=== PATIENT | male | born 2000 | race Caucasian/White ===

== ENCOUNTER 2023-07-23 12:02 | Inpatient (IN) | payer OTHER ==
[2023-07-23 12:27] VITALS: BMI 18.4
[2023-07-23] MEDS ORDERED: guaiFENesin 600 MG TABLET.ER (FP) PO PRN (13:22)
[2023-07-23] MEDS ORDERED: NALOXONE HCL (KLOXXADO) 8 MG SPRAY NS PRN (13:22)
[2023-07-23] MEDS ORDERED: DICYCLOMINE HCL 10 MG CAPSULE PO PRN (13:22)
[2023-07-23] MEDS ORDERED: ACETAMINOPHEN 325 MG TABLET (FP) PO PRN (13:22)
[2023-07-23] MEDS ORDERED: LOPERAMIDE HCL 2 MG CAPSULE PO PRN (13:22)
[2023-07-23] MEDS ORDERED: MAG HYDROX/AL HYDROX/SIMETH 30 ML UNIT-DOSE CUP PO PRN (13:22)
[2023-07-23] MEDS ORDERED: BISMUTH SUBSALICYLATE 262 MG/15 ML BTL PO PRN (13:22)
[2023-07-23] MEDS ORDERED: IBUPROFEN 400 MG TABLET (FP) PO PRN (13:22)
[2023-07-23] MEDS ORDERED: ONDANSETRON *ODT* 4 MG TABLET SL PRN (13:22)
[2023-07-23] MEDS ORDERED: BENZOCAINE/MENTHOL (CHLORASEPTIC ) LOZENGE MM PRN (13:22)
[2023-07-23] MEDS ORDERED: POLYETHYLENE GLYCOL (HEALTHYLAX) 3350 17 GM PACKET PO PRN (13:22)
[2023-07-23] MEDS ORDERED: MAGNESIUM HYDROX 2400MG/30ML ORAL SUSPENSION 30 ML CUP PO PRN (13:22)
[2023-07-23] MEDS ORDERED: NALOXONE HCL 0.4 MG/ML VIAL IM PRN (13:22)
[2023-07-23] MEDS ORDERED: BENZONATATE 200 MG CAPSULE PO PRN (13:22)
[2023-07-23] MEDS ORDERED: cloNIDine HCL 0.1 MG TABLET PO PRN (14:29)
[2023-07-23] MEDS ORDERED: methaDONE HCL 10 MG TABLET (FOR DETOX USE ONLY) PO ONE (14:29)
[2023-07-23] MEDS: hydrOXYzine PAMOATE 25 MG CAPSULE (FP) PO PRN (22:38)
[2023-07-23] MEDS: MELATONIN 5 MG TABLETS PO SCH (22:38)
[2023-07-23] MEDS: THIAMINE HCL 100 MG TABLET (FP) PO SCH (22:39)
[2023-07-24] MEDS: hydrOXYzine PAMOATE 25 MG CAPSULE (FP) PO PRN ×2 (07:23→22:29)
[2023-07-24] MEDS: METHOCARBAMOL 500 MG TABLET PO PRN (09:33)
[2023-07-24] MEDS: IBUPROFEN 600 MG TABLET (FP) PO PRN (09:33)
[2023-07-24] MEDS: PRENATAL VITAMINS W/ FOLIC ACID TABLET (FP) PO SCH (09:37)
[2023-07-24] MEDS: NICOTINE 21 MG/24 HOURS TOPICAL PATCH TD SCH (09:37)
[2023-07-24 10:46] LABS: HEMATOCRIT 45.4 % (35.4-49); HEMOGLOBIN 15.4 GM/dL (11.7-16.9); MCH 30.8 pg (25.7-33.7); MCHC 33.9 g/dl (32.0-35.9); MEAN CELL VOLUME 90.6 fl (80-96); MEAN PLT VOLUME 9.3 fl (7.5-11.1); PLATELET COUNT 228 10^3/uL (134-434); RBC 5.01 M/mm3 (4.00-5.60); RDW 12.8 % (11.9-15.9); WHITE BLOOD COUNT 7.5 K/mm3 (4.0-10.0)
[2023-07-24 11:40] LABS: CHLORIDE 104 mmol/L (98-107); POTASSIUM 4.1 mmol/L (3.5-5.1); SODIUM 139 mmol/L (136-145)
[2023-07-24 11:43] LABS: ALBUMIN 3.7 g/dl (3.4-5.0); GLUCOSE,RANDOM 83 mg/dL (74-106)
[2023-07-24 11:44] LABS: BLOOD UREA NITROGEN 17.1 mg/dL (7-18)
[2023-07-24 11:45] LABS: CALCIUM 9.5 mg/dL (8.5-10.1)
[2023-07-24 11:46] LABS: ANION GAP 6 mmol/L (4-13); CO2 29 mmol/L (21-32); SGPT/ALT 24 U/L (13-61)
[2023-07-24 11:47] LABS: BILIRUBIN,TOTAL 0.6 mg/dL (0.2-1); CREATININE 0.8 mg/dL (0.55-1.3); SGOT/AST 11 U/L (15-37)
[2023-07-24 11:48] LABS: TOT PROT 6.6 g/dl (6.4-8.2)
[2023-07-24 11:49] LABS: ALK PHOS 49 U/L (45-117)
[2023-07-24 12:11] LABS: HIV INTERPRETATION NEGATIVE (NEGATIVE)
[2023-07-24] MEDS: diazePAM 5 MG TABLET PO PRN (17:51)
[2023-07-24] MEDS: MELATONIN 5 MG TABLETS PO SCH (22:29)
[2023-07-24] MEDS: THIAMINE HCL 100 MG TABLET (FP) PO SCH (22:29)
[2023-07-25] MEDS: diazePAM 5 MG TABLET PO PRN ×2 (09:55→15:05)
[2023-07-25] MEDS: METHOCARBAMOL 500 MG TABLET PO PRN ×2 (09:55→22:25)
[2023-07-25] MEDS: PRENATAL VITAMINS W/ FOLIC ACID TABLET (FP) PO SCH (09:58)
[2023-07-25] MEDS: NICOTINE 21 MG/24 HOURS TOPICAL PATCH TD SCH (09:59)
[2023-07-25] MEDS ORDERED: methaDONE HCL 10 MG TABLET (FOR DETOX USE ONLY) PO ONE (10:00)
[2023-07-25] MEDS: hydrOXYzine PAMOATE 25 MG CAPSULE (FP) PO PRN ×2 (15:08→22:25)
[2023-07-25] MEDS: MELATONIN 5 MG TABLETS PO SCH (22:24)
[2023-07-25] MEDS: THIAMINE HCL 100 MG TABLET (FP) PO SCH (22:24)
[2023-07-25] MEDS: IBUPROFEN 600 MG TABLET (FP) PO PRN (22:30)
[2023-07-25] MEDS: NICOTINE POLACRILEX 4 MG GUM BUC PRN (22:32)
[2023-07-26] MEDS: METHOCARBAMOL 500 MG TABLET PO PRN ×2 (10:18→18:03)
[2023-07-26] MEDS: NICOTINE 21 MG/24 HOURS TOPICAL PATCH TD SCH (10:19)
[2023-07-26] MEDS: PRENATAL VITAMINS W/ FOLIC ACID TABLET (FP) PO SCH (10:20)
[2023-07-26] MEDS: diazePAM 5 MG TABLET PO PRN ×2 (14:11→22:17)
[2023-07-26] MEDS: hydrOXYzine PAMOATE 25 MG CAPSULE (FP) PO PRN (18:03)
[2023-07-26] MEDS: MELATONIN 5 MG TABLETS PO SCH (22:17)
[2023-07-26] MEDS: THIAMINE HCL 100 MG TABLET (FP) PO SCH (22:17)
[2023-07-26] MEDS: IBUPROFEN 600 MG TABLET (FP) PO PRN (22:20)
[2023-07-27] MEDS ORDERED: methaDONE HCL 10 MG TABLET (FOR DETOX USE ONLY) PO ONE (10:00)
[2023-07-27] MEDS: PRENATAL VITAMINS W/ FOLIC ACID TABLET (FP) PO SCH (10:31)
[2023-07-27] MEDS: NICOTINE 21 MG/24 HOURS TOPICAL PATCH TD SCH (10:32)
[2023-07-27] MEDS: METHOCARBAMOL 500 MG TABLET PO PRN ×2 (15:05→22:15)
[2023-07-27] MEDS: hydrOXYzine PAMOATE 25 MG CAPSULE (FP) PO PRN ×2 (15:05→22:15)
[2023-07-27] MEDS: NICOTINE POLACRILEX 4 MG GUM BUC PRN (21:26)
[2023-07-27] MEDS: MELATONIN 5 MG TABLETS PO SCH (22:14)
[2023-07-27] MEDS: THIAMINE HCL 100 MG TABLET (FP) PO SCH (22:14)
[2023-07-28 09:33] VITALS: BP 114/58; PULSE 67; RESP 17; TEMP 98.4
[2023-07-28] MEDS: NICOTINE 21 MG/24 HOURS TOPICAL PATCH TD SCH (10:35)
[2023-07-28] MEDS: PRENATAL VITAMINS W/ FOLIC ACID TABLET (FP) PO SCH (10:35)
== END 2023-07-28 09:45 | disposition home or self-care (01) | DRG 773 ==
LOC: YASAS 12:02 → Y6N 14:08
PROVIDERS: ADMIT Allergy & Immunology; ATTEND Surgery
PROC: HZ2ZZZZ Detoxification Services for Substance Abuse Treatment (ICD-10-PCS; principal; 2023-07-23)
DX: F11.23 Opioid dependence with withdrawal (principal); F17.210 Nicotine dependence, cigarettes, uncomplicated; Z28.310 Unvaccinated for COVID-19; Z28.9 Immunization not carried out for unspecified reason
CPT/HCPCS: 36415; 80053; 80307; 85027; 86780; 87389; 87635; 87811; 93005; 93010; Q0162

== ENCOUNTER 2023-11-01 14:02 | Inpatient (IN) | payer OTHER ==
[2023-11-01 14:55] VITALS: BMI 19.3
[2023-11-01] MEDS ORDERED: BENZOCAINE/MENTHOL (CHLORASEPTIC ) LOZENGE MM PRN (16:46)
[2023-11-01] MEDS ORDERED: DICYCLOMINE HCL 10 MG CAPSULE PO PRN (16:46)
[2023-11-01] MEDS ORDERED: NICOTINE POLACRILEX 2 MG GUM BUC PRN (16:46)
[2023-11-01] MEDS ORDERED: MAG HYDROX/AL HYDROX/SIMETH 30 ML UNIT-DOSE CUP PO PRN (16:46)
[2023-11-01] MEDS ORDERED: MAGNESIUM HYDROX 2400MG/30ML ORAL SUSPENSION 30 ML CUP PO PRN (16:46)
[2023-11-01] MEDS ORDERED: NALOXONE HCL (KLOXXADO) 8 MG SPRAY NS PRN (16:46)
[2023-11-01] MEDS ORDERED: LOPERAMIDE HCL 2 MG CAPSULE PO PRN (16:46)
[2023-11-01] MEDS ORDERED: POLYETHYLENE GLYCOL (HEALTHYLAX) 3350 17 GM PACKET PO PRN (16:46)
[2023-11-01] MEDS ORDERED: NALOXONE HCL 0.4 MG/ML VIAL IM PRN (16:46)
[2023-11-01] MEDS ORDERED: BENZONATATE 200 MG CAPSULE PO PRN (16:46)
[2023-11-01] MEDS ORDERED: BISMUTH SUBSALICYLATE 524 MG/30 ML PO PRN (16:46)
[2023-11-01] MEDS ORDERED: IBUPROFEN 400 MG TABLET (FP) PO PRN (16:46)
[2023-11-01] MEDS ORDERED: guaiFENesin 600 MG TABLET.ER (FP) PO PRN (16:46)
[2023-11-01] MEDS: hydrOXYzine PAMOATE 25 MG CAPSULE (FP) PO PRN (19:19)
[2023-11-01] MEDS: METHOCARBAMOL 500 MG TABLET PO PRN (19:19)
[2023-11-01] MEDS: ONDANSETRON *ODT* 4 MG TABLET SL PRN (19:56)
[2023-11-01] MEDS: methaDONE HCL 10 MG TABLET (FOR DETOX USE ONLY) PO ONE (23:00)
[2023-11-01] MEDS: MELATONIN 5 MG TABLETS PO SCH (23:02)
[2023-11-01] MEDS: THIAMINE HCL 100 MG TABLET (FP) PO SCH (23:02)
[2023-11-02] MEDS: diazePAM 5 MG TABLET PO ONE (00:01)
[2023-11-02] MEDS: IBUPROFEN 600 MG TABLET (FP) PO PRN (02:34)
[2023-11-02] MEDS: methaDONE HCL 10 MG TABLET (FOR DETOX USE ONLY) PO ONE ×2 (02:52→11:11)
[2023-11-02] MEDS: diazePAM 5 MG TABLET PO PRN (05:51)
[2023-11-02] MEDS ORDERED: methaDONE HCL 10 MG TABLET (FOR DETOX USE ONLY) PO ONE (10:10)
[2023-11-02] MEDS: PRENATAL VITAMINS W/ FOLIC ACID TABLET (FP) PO SCH (10:58)
[2023-11-02] MEDS: cloNIDine HCL 0.1 MG TABLET PO PRN (22:11)
[2023-11-03] MEDS: methaDONE HCL 10 MG TABLET (FOR DETOX USE ONLY) PO ONE (09:31)
[2023-11-03] MEDS ORDERED: methaDONE HCL 10 MG TABLET (FOR DETOX USE ONLY) PO ONE (10:00)
[2023-11-03 11:42] LABS: HEMATOCRIT 45.4 % (35.4-49); HEMOGLOBIN 14.8 GM/dL (11.7-16.9); MCH 30.2 pg (25.7-33.7); MCHC 32.5 g/dl (32.0-35.9); MEAN CELL VOLUME 92.8 fl (80-96); PLATELET COUNT 203 10^3/uL (134-434); RBC 4.89 M/mm3 (4.00-5.60); RDW 13.8 % (11.9-15.9); WHITE BLOOD COUNT 6.8 K/mm3 (4.0-10.0)
[2023-11-03 11:54] LABS: POTASSIUM 4.1 mmol/L (3.5-5.1)
[2023-11-03 12:06] LABS: ALBUMIN 3.7 g/dl (3.4-5.0); BLOOD UREA NITROGEN 12.5 mg/dL (7-18); CREATININE 0.7 mg/dL (0.55-1.3); TOT PROT 6.6 g/dl (6.4-8.2)
[2023-11-03 12:07] LABS: BILIRUBIN,TOTAL 0.2 mg/dL (0.2-1)
[2023-11-03 12:08] LABS: CALCIUM 8.7 mg/dL (8.5-10.1)
[2023-11-03] MEDS: ACETAMINOPHEN 325 MG TABLET (FP) PO PRN (23:10)
[2023-11-04] MEDS: MELATONIN 5 MG TABLETS PO ONE (01:32)
[2023-11-04] MEDS ORDERED: methaDONE HCL 10 MG TABLET (FOR DETOX USE ONLY) PO ONE (06:00)
[2023-11-04 06:20] VITALS: PULSE 65
[2023-11-04 09:17] VITALS: BP 128/74; RESP 16; TEMP 97.8
[2023-11-04] MEDS: methaDONE HCL 10 MG TABLET (FOR DETOX USE ONLY) PO ONE (09:30)
[2023-11-05] MEDS ORDERED: methaDONE HCL 10 MG TABLET (FOR DETOX USE ONLY) PO ONE (10:00)
== END 2023-11-04 11:00 | disposition home or self-care (01) | DRG 773 ==
LOC: YASAS 14:02 → Y6N 17:41
PROVIDERS: ADMIT Allergy & Immunology; ATTEND Surgery
PROC: HZ2ZZZZ Detoxification Services for Substance Abuse Treatment (ICD-10-PCS; principal; 2023-11-01)
DX: F11.23 Opioid dependence with withdrawal (principal); F12.20 Cannabis dependence, uncomplicated; F17.210 Nicotine dependence, cigarettes, uncomplicated; F41.9 Anxiety disorder, unspecified; G47.00 Insomnia, unspecified
CPT/HCPCS: 36415; 80053; 85027; 86780; Q0162

== ENCOUNTER 2023-12-07 15:01 | Inpatient (IN) | payer OTHER ==
[2023-12-07 17:38] VITALS: BMI 19.3
[2023-12-07] MEDS ORDERED: MAGNESIUM HYDROX 2400MG/30ML ORAL SUSPENSION 30 ML CUP PO PRN (19:58)
[2023-12-07] MEDS ORDERED: NALOXONE HCL 0.4 MG/ML VIAL IM PRN (19:58)
[2023-12-07] MEDS ORDERED: NICOTINE POLACRILEX 2 MG GUM BUC PRN (19:58)
[2023-12-07] MEDS ORDERED: BENZONATATE 200 MG CAPSULE PO PRN (19:58)
[2023-12-07] MEDS ORDERED: LOPERAMIDE HCL 2 MG CAPSULE PO PRN (19:58)
[2023-12-07] MEDS ORDERED: ACETAMINOPHEN 325 MG TABLET (FP) PO PRN (19:58)
[2023-12-07] MEDS ORDERED: POLYETHYLENE GLYCOL (HEALTHYLAX) 3350 17 GM PACKET PO PRN (19:58)
[2023-12-07] MEDS ORDERED: MAG HYDROX/AL HYDROX/SIMETH 30 ML UNIT-DOSE CUP PO PRN (19:58)
[2023-12-07] MEDS ORDERED: ONDANSETRON *ODT* 4 MG TABLET SL PRN (19:58)
[2023-12-07] MEDS ORDERED: NALOXONE HCL (KLOXXADO) 8 MG SPRAY NS PRN (19:58)
[2023-12-07] MEDS ORDERED: BISMUTH SUBSALICYLATE 524 MG/30 ML PO PRN (19:58)
[2023-12-07] MEDS ORDERED: BENZOCAINE/MENTHOL (CHLORASEPTIC ) LOZENGE MM PRN (19:58)
[2023-12-07] MEDS ORDERED: guaiFENesin 600 MG TABLET.ER (FP) PO PRN (19:58)
[2023-12-07] MEDS ORDERED: methaDONE HCL 10 MG TABLET (FOR DETOX USE ONLY) ONE (21:34)
[2023-12-07] MEDS: methaDONE HCL 10 MG TABLET (FOR DETOX USE ONLY) PO ONE (21:38)
[2023-12-07] MEDS: METHOCARBAMOL 500 MG TABLET PO PRN (22:44)
[2023-12-07] MEDS: THIAMINE 100 MG TABLET PO SCH (22:44)
[2023-12-07] MEDS: cloNIDine HCL 0.1 MG TABLET PO PRN (22:44)
[2023-12-07] MEDS: MELATONIN 5 MG TABLETS PO SCH (22:44)
[2023-12-08] MEDS: PRENATAL VITAMINS W/ FOLIC ACID TABLET (FP) PO SCH (10:02)
[2023-12-08] MEDS: NICOTINE 14 MG/24 HOURS TOPICAL PATCH TD SCH (10:03)
[2023-12-08] MEDS: hydrOXYzine PAMOATE 25 MG CAPSULE (FP) PO PRN (17:12)
[2023-12-08] MEDS: IBUPROFEN 600 MG TABLET (FP) PO PRN (17:13)
[2023-12-09] MEDS: methaDONE HCL 10 MG TABLET (FOR DETOX USE ONLY) PO ONE (10:56)
[2023-12-11] MEDS: methaDONE HCL 10 MG TABLET (FOR DETOX USE ONLY) PO ONE (10:42)
[2023-12-12] MEDS: IBUPROFEN 400 MG TABLET (FP) PO PRN (06:00)
[2023-12-12 06:31] VITALS: RESP 16
[2023-12-12 10:47] VITALS: BP 129/84; PULSE 75; TEMP 98
== END 2023-12-12 09:57 | disposition home or self-care (01) | DRG 773 ==
LOC: YASAS 15:01 → Y3N 21:31
PROVIDERS: ADMIT Allergy & Immunology; ATTEND Surgery
PROC: HZ2ZZZZ Detoxification Services for Substance Abuse Treatment (ICD-10-PCS; principal; 2023-12-07)
DX: F11.23 Opioid dependence with withdrawal (principal); F12.20 Cannabis dependence, uncomplicated; F17.210 Nicotine dependence, cigarettes, uncomplicated
CPT/HCPCS: 80305; 93005; 93010